=== PATIENT | male | born 1975 | race Two or more races ===

== ENCOUNTER 2020-05-02 09:13 | Day surgery (SDC) | payer OTHER | END 2020-05-02 13:10 | disposition home or self-care (01) | LOC: AMB-ENDOS 09:13 | PROVIDERS: ATTEND Surgery | DX: K62.89 Other specified diseases of anus and rectum (principal); K64.0 First degree hemorrhoids; Z20.828 Contact with and (suspected) exposure to other viral communicable diseases ==